=== PATIENT | male | born 1935 | race Caucasian/White ===

== ENCOUNTER 2016-08-25 05:43 | Emergency (ER) | payer OTHER ==
[~2016-08-25] VITALS: Ht 182.9 cm; Wt 106.6 kg
[~2016-08-25 05:43] MED LIST: AMLODIPINE BESYL5 M1 PO; ASPIRIN81 M4 PO; BACTRIM DS TAB1 EACH PO; CALCIUM 500 +1 EAC5 PO; CEPHALEXIN250 M2 PO; FLOMAX0.4 M1 PO; GLUCOSAMINE HC500 MG PO; HYDRALAZINE HCL50 M1 PO; JANUVIA50 M1 PO; PERCOCET 5-3251 EACH PO; TRAMADOL HCL50 M1 PO; ULTRAM50 M1 PO; VITAMIN B-121000 MC3 PO; VITAMIN C500 M6 PO
--- NOTE | 2016-08-25 05:52 | ED GI/GU/ABDOMINAL COMPLAINT ---
See Addendum History of Present Illness General Chief Complaint: Abdominal Pain/Flank Pain Stated Complaint: LT SIDE FLANK PAIN SINCE YEST Source: patient, family, old records Exam Limitations: no limitations Vital Signs & Intake/Output Vital Signs & Intake/Output Vital Signs Date Time Temp Pulse Resp B/P Pulse O2 O2 Flow FiO2 Ox Delivery Rate 08/25 0953 97.5 66 20 144/80 96 Room Air 08/25 0756 97.1 61 20 186/84 95 Room Air 08/25 0604 96.1 73 18 162/84 98 Room Air 08/25 0602 98 Room Air Allergies Coded Allergies: Sulfa (Sulfonamide Antibiotics) (ITCHING 08/25/16) Triage Nurses Notes Reviewed? yes HPI: Patient presents with left flank crampy pain that started yesterday. The pain is been constant. There are no aggravating or mitigating factors. There is no radiation. The pain is 8 out of 10. There is no nausea or vomiting. Yesterday he had 2 episodes of dysuria but none today. Patient has not noticed any hematuria. (ALISON HAHN,JIAN Clemons) Reconcile Medications Amlodipine Besylate 5 MG TABLET 1 TAB PO DAILY HTN (Reported) Ascorbate Calcium (Vitamin C) (Unknown Strength) TABLET (Unknown Dose) PO DAILY SUPPLEMENT (Reported) Aspirin (Aspirin*) 81 MG TAB.CHEW 1 TAB PO DAILY HEART HEALTH (Reported) Calcium Carbonate/Vitamin D3 (Calcium 500 + D Tablet) 500 MG-400 TABLET 2 TAB PO DAILY SUPPLEMENT (Reported) Cephalexin (Keflex) 500 MG CAPSULE 1 CAP PO BID UTI Cyanocobalamin (Vitamin B-12) (Unknown Strength) TABLET (Unknown Dose) PO DAILY SUPPLEMENT (Reported) Glucosamine HCl 500 MG TABLET 2 TAB PO DAILY SUPPLEMENT (Reported) Hydralazine HCl 50 MG TABLET 1 TAB PO DAILY HTN (Reported) Oxycodone HCl/Acetaminophen (Percocet 5-325 MG Tablet) 5 MG-325 MG TABLET 1 TAB PO Q12 PRN PAIN Sitagliptin Phosphate (Januvia) 50 MG TABLET 1 TAB PO DAILY DM (Reported) (LAZARUS RUCKER DO) Past History Medical History Any Pertinent Medical History? see below for history Neurological: NONE EENT: NONE Cardiovascular: hypertension Respiratory: NONE Gastrointestinal: NONE Hepatic: NONE Renal: BENIGN GROWTHS ON BOTH KI Musculoskeletal: NONE Psychiatric: NONE Endocrine: diabetes Blood Disorders: NONE 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, PROSTRATE AT RISK PARAPROFESSIONAL/Reproductive: NONE Surgical History Surgical History: non-contributory Psychosocial History Who do you live with Spouse What is your primary language German Tobacco Use: Current Daily Use Daily Tobacco Use Amount/Type: => 5 Cigarettes daily ETOH Use: occasional use Illicit Drug Use: denies illicit drug use Family History Hx Contributory? No (ALISON HAHN,JIAN Clemons) Review of Systems Review of Systems Constitutional: Reports: no symptoms. EENTM: Reports: no symptoms. Respiratory: Reports: no symptoms. Cardiovascular: Reports: no symptoms. GI: Reports: see HPI, abdominal pain. Genitourinary: Reports: see HPI, dysuria. Musculoskeletal: Reports: no symptoms. Skin: Reports: no symptoms. Neurological/Psychological: Reports: no symptoms. Hematologic/Endocrine: Reports: no symptoms. Immunologic/Allergic: Reports: no symptoms. All Other Systems: Reviewed and Negative (ALISON HAHN,JIAN Clemons) Physical Exam Physical Exam General Appearance: well developed/nourished, alert, awake, mild distress Head: atraumatic, normal appearance Eyes: Bilateral: PERRL, EOMI. Ears, Nose, Throat, Mouth: hearing grossly normal, moist mucous membrane Neck: normal inspection, supple, full range of motion, normal alignment Respiratory: normal breath sounds, chest non-tender, no respiratory distress, lungs clear Cardiovascular: regular rate/rhythm, normal peripheral pulses Gastrointestinal: normal bowel sounds, soft, non-tender, no organomegaly Back: normal inspection, normal range of motion, NO CVA TENDERNESS Extremities: normal range of motion Neurologic/Psych: no motor/sensory deficits, awake, alert, oriented x 3, normal gait, normal mood/affect Skin: intact, normal color, warm/dry Core Measures ACS in differential dx? No Severe Sepsis Present: No Septic Shock Present: No (ALISON HAHN,JIAN Clemons) Progress Differential Diagnosis: AMI, diverticulitis, ischemic bowel, inflamm bowel dis, pancreatitis, SBO, ureterolithiasis, urinary retention, UTI/pyelo Plan of Care: Orders Procedure Date/time Status TROPONIN LEVEL 08/25 06 Complete LIPASE 08/25 0618 Complete COMPREHENSIVE METABOLIC PANEL 08/25 617 Complete CBC WITHOUT DIFFERENTIAL 08/25 617 Complete AMYLASE 08/25 0618 Complete EKG 08/25 617 Active URINALYSIS 08/25 0550 Complete Laboratory Tests 08/25/16 0953: Urinalysis LIGHT H, Urine Color YEL, Urine Clarity CLEAR, Urine pH 6.0, Ur Specific Oxly 1.025, Urine Protein 100 H, Urine Ketones NEG, Urine Nitrite NEG, Urine Bilirubin NEG, Urine Urobilinogen 0.2, Ur Leukocyte Esterase NEG, Ur Microscopic SEDIMENT EXAMINED, Urine RBC 3-5, Urine WBC 1-3 H, Urine Bacteria MOD H, Urine Hemoglobin SMALL H, Urine Glucose NEG 08/25/16 0640: Anion Gap 12, Estimated GFR 39 L, BUN/Creatinine Ratio 17.6, Glucose 203 H, Calcium 9.9, Total Bilirubin 0.7, AST 23, ALT 40, Alkaline Phosphatase 58, Troponin I 0.05, Total Protein 6.8, Albumin 4.3, Globulin 2.5, Albumin/Globulin Ratio 1.7, Amylase 46, Lipase 182, CBC w Diff MAN DIFF ORDERED, RBC 4.35 L, MCV 87.6, MCH 28.6, RDW 13.8, MPV 9.7, Gran % 65.4, Lymphocytes % 27.9, Monocytes % 5.5, Eosinophils % 0.8, Basophils % 0.4, Absolute Granulocytes 11.2 H, Segmented Neutrophils 62, Absolute Lymphocytes 4.8 H, Lymphocytes 32, Monocytes 5, Absolute Monocytes 0.9 H, Eosinophils 1, Absolute Eosinophils 0.1, Absolute Basophils 0.1, Platelet Estimate ADEQUATE, Polychromasia 1+, Ovalocytes FEW, PUBS MCHC 32.7 L, Fld Total RBCs Counted 100 Diagnostic Imaging: Viewed by Me: CT Scan. Discussed w/RAD: CT Scan. Initial ED EKG: SR WITH BIFASICULAR BLOCK, NEW SINCE 2009 Prior EKG: changed Hand-Off Endorsed To: LAZARUS HENRIQUEZ MD Endorsed Time: 0700 Pending: CT, labs (ALISON HAHN,JIAN Clemons) Departure Departure Disposition: STILL A PATIENT Condition: Stable Clinical Impression Primary Impression: Upper abdominal pain, unspecified Referrals: SONIA BAEZ MD (PCP/Family) Departure Forms: Customer Survey General Discharge Information (ALISON HAHN,JIAN Clemons) Departure Prescriptions: Current Visit Scripts Cephalexin (Keflex) 1 CAP PO BID #14 CAP Oxycodone HCl/Acetaminophen (Percocet 5-325 MG Tablet) 1 TAB PO Q12 PRN PAIN #[address] scan results below IMPRESSION: No change in punctate calculus left ureterovesicular junction with mild hydronephrosis. Unchanged 3 mm nonobstructing calculus lower pole left kidney. Slight enlargement of bilateral solid renal masses. DICTATED BY: ANGELA CARVALHO MD DATE/TIME DICTATED:08/25/16727 UTILIZATION SPECIALIST:AJ DATE/TIME TRANSCRIBED:08/25/16727 CONFIDENTIAL, DO NOT COPY WITHOUT APPROPRIATE AUTHORIZATION. <Electronically signed in Other Vendor System> SIGNED BY: ANGELA CARVALHO MD 08/25/16 0742 08/25/16 9:11 am Patient was signed out to me by Dr. Santiago. He is an 81-year-old male with a history of bilateral renal masses; presented with left-sided flank pain. His CT scan of the abdomen and pelvis is unchanged. He has a 3 mm left renal stone. No evidence of hydronephrosis or ureterolithiasis. 08/25/16 10:26 AM Labs are unchanged. No hematuria. Urine culture was sent. I will treat the patient empirically with antibiotics and have him follow-up with urologist this week. He has a known history of bilateral renal masses. He was instructed to follow- up with urologist this week. Percocet was also given for pain. (LAZARUS RUCKER DO)
[2016-08-25 06:49] LABS: EOSINOPHIL % 0.8 % (0-5); HEMATOCRIT 38.1 % (42-52); MEAN CORPUSCULAR HGB 28.6 PG (27.0-31.0); MEAN CORPUSCULAR HGB CONC 32.7 G/DL (33.0-37.0); MEAN CORPUSCULAR VOLUME 87.6 FL (80.0-94.0); MEAN PLATELET VOLUME 9.7 FL (7.4-10.4); PLATELET COUNT 167 /CUMM (130-400); RBC DISTRIBUTION WIDTH 13.8 % (11.5-14.5); RED BLOOD CELL CT 4.35 /CUMM (4.70-6.10); WHITE BLOOD CELL COUNT 17.1 /CUMM (4.8-10.8)
[2016-08-25 06:57] LABS: BASOPHIL % 0.4 % (0.0-2.0)
[2016-08-25 06:58] LABS: ABSOLUTE BASOPHIL COUNT 0.1 /CUMM (0.0-0.2); ABSOLUTE EOSINOPHIL COUNT 0.1 /CUMM (0.0-0.7); ABSOLUTE GRANULOCYTE CT 11.2 /CUMM (1.4-6.5); ABSOLUTE LYMPH COUNT 4.8 /CUMM (1.2-3.4); ABSOLUTE MONOCYTE COUNT 0.9 /CUMM (0.10-0.60); GRANULOCYTE % 65.4 % (42.2-75.2)
--- NOTE | 2016-08-25 07:42 | CT SCAN REPORT ---
EXAMINATION: CT ABDOMEN AND PELVIS WITHOUT CONTRAST CLINICAL INFORMATION: Left flank pain. COMPARISON: 04/22/2016 TECHNIQUE: Multidetector volumetric imaging was performed from the superior aspect of the liver through the pubic symphysis. Sagittal and coronal reformatted images were obtained on the technologist's workstation. DLP: 846 mGy-cm FINDINGS: LUNG BASES: The lung bases are clear. Heavy three-vessel coronary calcium. LIVER, GALLBLADDER, AND BILIARY TREE: The liver is normal in size, shape, and attenuation. No focal hepatic lesion or biliary ductal dilatation is present. Multiple large faceted gallstones. No evidence of cholecystitis. PANCREAS: Unremarkable. SPLEEN: Unremarkable. ADRENAL GLANDS: Unremarkable. KIDNEYS AND URETERS: Unchanged punctate left UVJ calculus with mild upstream hydronephrosis. 3 mm nonobstructing calculus in the lower pole left kidney. No calculi on the right. There are multiple cysts. Additionally, there are solid masses in the lower pole of the right kidney measuring 6.6 x 5.3 cm and mid pole of the left kidney measuring 5.1 x 4.9 cm that have been previously shown to be solid and enhancing on MRI consistent with renal cell carcinoma. These slightly enlarged in size compared to 04/22/2016 when the right mass measured 6.4 cm in the left mass measured 4.7 cm in maximum dimension.. BLADDER: Unchanged left UVJ calculus. GASTROINTESTINAL TRACT: The small and large bowel are unremarkable. ABDOMINAL WALL: No significant hernia is appreciated. LYMPH NODES: Normal. VASCULAR: Negative for aneurysm. PELVIC VISCERA: Prostate normal size. OSSEOUS STRUCTURES: No evidence of metastatic disease. Posterior decompression at L3-L4. IMPRESSION: No change in punctate calculus left ureterovesicular junction with mild hydronephrosis. Unchanged 3 mm nonobstructing calculus lower pole left kidney. Slight enlargement of bilateral solid renal masses.
[2016-08-25 09:53] VITALS: BP 144/80
[2016-08-25] MEDS ORDERED: KEFLEX500 M1 PO (10:30)
[2016-08-25] MEDS ORDERED: PERCOCET 5-3251 EACH PO (10:39)
== END 2016-08-25 10:41 ==
LOC: ERH 05:43
PROVIDERS: Emergency Medicine
DX: R10.32 Left lower quadrant pain (principal)
CPT/HCPCS: 74176; 81001; 93005; 93010; 96374; J1885

== ENCOUNTER 2017-10-04 13:43 | Emergency (ER) | payer OTHER ==
[~2017-10-04] VITALS: Ht 182.9 cm; Wt 102.1 kg
[~2017-10-04 13:43] MED LIST changes: +KEFLEX500 M1 PO
[2017-10-04 13:51] VITALS: BP 157/72
--- NOTE | 2017-10-04 14:16 | ED MVC/FALL/TRAUMA COMPLAINT ---
History of Present Illness General Chief Complaint: Fall Stated Complaint: MECHANICAL FALL BUMP OVER RIGHT EYE NO LOC Source: patient, family, old records Exam Limitations: no limitations Vital Signs & Intake/Output Vital Signs & Intake/Output Vital Signs Date Time Temp Pulse Resp B/P B/P Pulse O2 O2 Flow FiO2 Mean Ox Delivery Rate 10/04 1351 98.6 76 18 157/72 97 Room Air Allergies Coded Allergies: Sulfa (Sulfonamide Antibiotics) (ITCHING 08/25/16) Reconcile Medications Amlodipine Besylate 5 MG TABLET 1 TAB PO DAILY HTN (Reported) Ascorbate Calcium (Vitamin C) (Unknown Strength) TABLET (Unknown Dose) PO DAILY SUPPLEMENT (Reported) Aspirin (Aspirin*) 81 MG TAB.CHEW 1 TAB PO DAILY HEART HEALTH (Reported) Calcium Carbonate/Vitamin D3 (Calcium 500 + D Tablet) 500 MG-400 TABLET 2 TAB PO DAILY SUPPLEMENT (Reported) Cephalexin (Keflex) 500 MG CAPSULE 1 CAP PO BID UTI Cyanocobalamin (Vitamin B-12) (Unknown Strength) TABLET (Unknown Dose) PO DAILY SUPPLEMENT (Reported) Glucosamine HCl 500 MG TABLET 2 TAB PO DAILY SUPPLEMENT (Reported) Hydralazine HCl 50 MG TABLET 1 TAB PO DAILY HTN (Reported) Oxycodone HCl/Acetaminophen (Percocet 5-325 MG Tablet) 5 MG-325 MG TABLET 1 TAB PO Q12 PRN PAIN Sitagliptin Phosphate (Januvia) 50 MG TABLET 1 TAB PO DAILY DM (Reported) Triage Note: PT TO ER C/C MECHANICAL FALL AT [facility] [employer]NA[employer]. EMS PRESENTED TO SCENE, PT REFUSED TRANSIT TO ER BY EMS. PT NOTED TO HAVE HEMATOMA TO RIGHT FOREHEAD WITH SMALL ABRASION. DENIES LOC. STATES TAKES 81 MG ASA DAILY. DENIES HEAD, NECK OR BACK PAIN Triage Nurses Notes Reviewed? yes Onset: Abrupt Duration: hour(s): (1), constant Timing: recent history Severity: mild Severity Numbers: 1 Injuries/Fall Location: head, upper extremity Method of Injury: fall Loss of Consciousness: no loss of consciousness No Modifying Factors: none Associated Symptoms: denies HPI: 82-year-old male with history of hypertension diabetes on aspirin presents s/p mechanical fall when he tripped and fell at [facility] prior to arrival striking his right upper arm and right side of his face. He states he did not lose consciousness. He denies nausea vomiting vision changes tinnitus. There is no prodromal dizziness light has prior to the fall. He's also complaining of right upper arm pain. He denies any pain with movement of the shoulder elbow wrist or hand numbness or tingling. He is not taken anything for pain as declining anything and offered no pain with inspiration no neck or back pain (Sidney Alvarez) Past History Travel History Traveled to [place] past 21 day No Medical History Any Pertinent Medical History? 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 No (Sidney Alvarez) Review of Systems Review of Systems Constitutional: Reports: see HPI. Comments Review of systems: See HPI, All other systems negative. Constitutional, no chills no fever, HEENT: no sore throat no congestion Cardiovascular: No chest pain , no palpitation Skin: no rashes, no change in skin Respiratory: No dyspnea no cough no sputum GI: No nausea no vomiting, no diarrhea, Muscle skeletal:no back pain, no neck pain, Neurologic: no headache Heme/endocrine: No bruising (Sidney Alvarez) Physical Exam Physical Exam General Appearance: well developed/nourished, alert, awake Comments: Well-developed well-nourished patient in no apparent distress. Head/Face: Small hematoma noted over the right eyebrow, no abrasions lacerations noted, the rest of the scalp is atraumatic Eyes: PERRL, EOMI, no conjunctival injection Ear:External auditory canal and Tympanic membranes clear, no erythema, no hemotympanum Nose: atraumatic.Normal inspection: No bleeding, no septal hematoma Throat: Moist mucous membranes.Pharynx normal. No pharyngeal erythema/exudate seen. No stridor/drooling or assymetry. No swelling or edema. Neck: Supple, no lymphadenopathy, FROM Back: FROM Cardiovascular: Regular rate and rhythms no murmurs rubs or gallops, Respiratory: Chest nontender.no clavicular tenderness There were no bony deformities, no asymmetry. No respiratory distress. Patient speaking in full complete sentences. Breath sounds clear to auscultation bilaterally: NO W/R/R Shoulder: Atraumatic/Stable. FROM . Elbow: Atraumatic/stable. FROM. No laxity Upper arm/Forearm: Atraumatic. Tender to palpation over the right lateral humerus no deformity. No edema, 5 out of 5 merchandise manager strength noted to bilateral upper extremities Hand/Wrist: Atraumatic/stable. Skin intact. FROM Pulses: Normal/equal radial pulses bilaterally. Brisk cap refill Lower Extremities: full range of motion Neuro: awake, alert, and oriented to person, place and time. There were no obvious focal neurologic abnormalities. Skin: Warm & dry;No appreciable rash on exposed skin Psych: Mood affect normal, normal memory normal judgment. Core Measures ACS in differential dx? No CVA/TIA Diagnosis No Sepsis Present: No Sepsis Focused Exam Completed? No (Jazmin ANGEL,Sidney) Progress Differential Diagnosis: C/T/L spine injury, ext injury, ICH, pelvis injury, spinal cord injury Plan of Care: Current Medications Sig/Mario Alberto Start time Last Medication Dose Stop Time Status Admin Acetaminophen 975 MG ONCE ONE 10/04 1515 UNVr 10/04 (Tylenol) 10/04 1516 1505 pt ambulatory to stretcher in nad. Patient is declining anything for pain when offered x-ray CAT scan ordered case d/w dr byrne. I discussed with the patient at length all of their results and incidental findings. PT AMB with steady gait in er. I had an extensive conversation regarding need for close follow up with their primary care physician this week as well as return precautions. I answered all of their questions, they feel comfortable with the plan and follow-up care. Diagnostic Imaging: Viewed by Me: Radiology Read, CT Scan. Discussed w/RAD: Radiology Read, CT Scan. Radiology Impression: PATIENT: INDIA REESE PRESENT AGE: 82 PATIENT ACCOUNT NO: [id number] : 35 LOCATION: [facility] ORDERING PHYSICIAN: Sidney ANGEL SERVICE DATE: 10/04/17 EXAM TYPE: CAT - CT HEAD WO IV CONTRAST EXAMINATION: CT HEAD WITHOUT CONTRAST CLINICAL INFORMATION: Fall and hit head. COMPARISON: None. TECHNIQUE: Contiguous axial imaging was performed from the skull base to vertex without intravenous administration of contrast. DLP: 696 mGy-cm. FINDINGS: There is right frontal scalp contusion and subgaleal hematoma but no calvarial fracture. There is no intracranial hemorrhage or extra-axial collection. There is a partially calcified 1.2 cm extra-axial lesion along the right prepontine cistern which could represent a meningioma. The lesion appears to extend into the posterior aspect of the cavernous sinus and Meckel's cave. The lesion abuts the wander but does not cause significant mass effect or vasogenic edema. No parenchymal mass or acute infarct is identified. The ventricles are normal in size without evidence of hydrocephalus. There is mild diffuse brain parenchymal volume loss. There is mild scattered hypoattenuation in the bilateral cerebral white matter, which is nonspecific but likely reflects small vessel disease. There is moderate polypoid paranasal sinus mucosal thickening and background changes of prior functional endoscopic sinus surgery. There are atherosclerotic calcification of the carotid siphons and vertebral arteries. IMPRESSION: - Right frontal scalp contusion and subgaleal hematoma but no calvarial fracture or intracranial hemorrhage. - Incidentally noted 1.2 cm partly calcified extra-axial lesion in the right prepontine cistern extending into the posterior aspect of the cavernous sinus and Meckel's cave. This finding could represent a meningioma but is now fully characterize. Consider nonemergent brain MRI with contrast for dedicated evaluation if this has not already been performed. - Moderate sinonasal polyposis. DICTATED BY: Nani Chen MD DATE/TIME DICTATED:10/04/171458 CAD MANAGER:AJ DATE/TIME TRANSCRIBED:10/04/171458 CONFIDENTIAL, DO NOT COPY WITHOUT APPROPRIATE AUTHORIZATION. <Electronically signed in Other Vendor System> SIGNED BY: Nani Chen MD 10/04/17 1514, PATIENT: INDIA REESE PRESENT AGE: 82 PATIENT ACCOUNT NO: [id number] : 35 LOCATION: [facility] ORDERING PHYSICIAN: Sidney ANGEL SERVICE DATE : 10/04/17 EXAM TYPE: RAD - XRY-HUMERUS, RIGHT EXAMINATION: XR HUMERUS, RIGHT CLINICAL INFORMATION: Rule out fracture. Fall and pain. COMPARISON: None TECHNIQUE: AP and lateral views of the right humerus. FINDINGS: The humerus is intact without fracture. The glenohumeral alignment is maintained. There are advanced degenerative changes at the acromioclavicular joint and milder changes at the glenohumeral joint. The soft tissues are within normal limits. IMPRESSION : No right humeral fracture. DICTATED BY: Nani Chen MD DATE/TIME DICTATED: 10/04/171510 CAD MANAGER:AJ DATE/TIME TRANSCRIBED:10/04/171510 CONFIDENTIAL, DO NOT COPY WITHOUT APPROPRIATE AUTHORIZATION. <Electronically signed in Other Vendor System> SIGNED BY: Nani Chen MD 10/04/17 1516 (Sidney Alvarez) Departure Departure Time of Disposition: 1519 Disposition: HOME OR SELF CARE Condition: Stable Clinical Impression Primary Impression: Minor head injury without loss of consciousness Secondary Impressions: Fall, Scalp hematoma Referrals: Arslan Guzmán MD (PCP/Family) Additional Instructions: Rest ice and Tylenol Motrin for pain. Follow-up with your primary care physician. Return to emergency room at anytime sooner with any concerns. Departure Forms: Customer Survey General Discharge Information (Sidney Alvarez) PA/INFORMATION CLERK CASHIER Co-Sign Statement Statement: ED Attending supervision documentation- [X] I saw and evaluated the patient. I have also reviewed all the pertinent lab results and diagnostic results. I agree with the findings and the plan of care as documented in the PA's/INFORMATION CLERK CASHIER's documentation. Patient presents for evaluation of injury sustained status post fall. Physical examination reveals a small area of soft tissue swelling and ecchymoses of the right brow. [] I have reviewed the ED Record and agree with the PA's/INFORMATION CLERK CASHIER's documentation. [] Additions or exceptions (if any) to the PAs/INFORMATION CLERK CASHIER's note and plan are summarized below: [] (Lamar HAHN,Jeremy Gibbs)
--- NOTE | 2017-10-04 15:14 | CT SCAN REPORT ---
EXAMINATION: CT HEAD WITHOUT CONTRAST CLINICAL INFORMATION: Fall and hit head. COMPARISON: None. TECHNIQUE: Contiguous axial imaging was performed from the skull base to vertex without intravenous administration of contrast. DLP: 696 mGy-cm. FINDINGS: There is right frontal scalp contusion and subgaleal hematoma but no calvarial fracture. There is no intracranial hemorrhage or extra-axial collection. There is a partially calcified 1.2 cm extra-axial lesion along the right prepontine cistern which could represent a meningioma. The lesion appears to extend into the posterior aspect of the cavernous sinus and Meckel's cave. The lesion abuts the wander but does not cause significant mass effect or vasogenic edema. No parenchymal mass or acute infarct is identified. The ventricles are normal in size without evidence of hydrocephalus. There is mild diffuse brain parenchymal volume loss. There is mild scattered hypoattenuation in the bilateral cerebral white matter, which is nonspecific but likely reflects small vessel disease. There is moderate polypoid paranasal sinus mucosal thickening and background changes of prior functional endoscopic sinus surgery. There are atherosclerotic calcification of the carotid siphons and vertebral arteries. IMPRESSION: - Right frontal scalp contusion and subgaleal hematoma but no calvarial fracture or intracranial hemorrhage. - Incidentally noted 1.2 cm partly calcified extra-axial lesion in the right prepontine cistern extending into the posterior aspect of the cavernous sinus and Meckel's cave. This finding could represent a meningioma but is now fully characterize. Consider nonemergent brain MRI with contrast for dedicated evaluation if this has not already been performed. - Moderate sinonasal polyposis.
--- NOTE | 2017-10-04 15:16 | RADIOLOGY REPORT ---
EXAMINATION: XR HUMERUS, RIGHT CLINICAL INFORMATION: Rule out fracture. Fall and pain. COMPARISON: None TECHNIQUE: AP and lateral views of the right humerus. FINDINGS: The humerus is intact without fracture. The glenohumeral alignment is maintained. There are advanced degenerative changes at the acromioclavicular joint and milder changes at the glenohumeral joint. The soft tissues are within normal limits. IMPRESSION: No right humeral fracture.
== END 2017-10-04 15:33 ==
LOC: ERH 13:43
DX: S09.90XA Unspecified injury of head, initial encounter (principal); S00.03XA Contusion of scalp, initial encounter; W18.09XA Striking against other object with subsequent fall, initial encounter; Y92.511 Restaurant or cafe as the place of occurrence of the external cause; Y93.9 Activity, unspecified
CPT/HCPCS: 73060-RT

== ENCOUNTER 2017-11-30 11:49 | Inpatient (IN) | payer OTHER ==
[~2017-11-30] VITALS: Ht 182.9 cm; Wt 100.5 kg
[~2017-11-30 11:49] MED LIST changes: +AMLODIPINE BESY10 M1 PO; -AMLODIPINE BESYL5 M1 PO
--- NOTE | 2017-11-30 12:15 | ED GENERAL ADULT ---
See Addendum History of Present Illness General Chief Complaint: General Adult Stated Complaint: SIB FOR RAPID HEART ,BEATAND PNC Source: patient Exam Limitations: no limitations Vital Signs & Intake/Output Vital Signs & Intake/Output Vital Signs Date Time Temp Pulse Resp B/P B/P Pulse O2 O2 Flow FiO2 Mean Ox Delivery Rate 11/30 1415 103 18 95 Room Air 11/30 1328 98.0 94 16 132/81 94 Room Air 11/30 1255 97.0 124 18 163/84 11/30 1242 97.0 124 163/84 11/30 1155 98.1 122 18 149/86 99 Room Air Allergies Coded Allergies: Sulfa (Sulfonamide Antibiotics) (ITCHING 08/25/16) metformin (DIARRHEA 11/30/17) Reconcile Medications Amlodipine Besylate 10 MG TABLET 1 TAB PO DAILY HEART (Reported) Aspirin (Aspirin*) 81 MG TAB.CHEW 1 TAB PO DAILY HEART HEALTH (Reported) Atorvastatin Calcium 10 MG TABLET 1 TAB PO QPM CHOLESTEROL (Reported) Cyanocobalamin (Vitamin B-12) 1,000 MCG TABLET SUPPLEMENT (Reported) Glucosamine HCl 500 MG TABLET 2 TAB PO DAILY SUPPLEMENT (Reported) Hydralazine HCl 50 MG TABLET 1 TAB PO BID HTN (Reported) Sitagliptin Phosphate (Januvia) 50 MG TABLET 1 TAB PO DAILY DM (Reported) Triage Note: 82 Y/O MALE SENT BY DR GUZMÁN FOR EVAL OF ? NEW ONSET AFIB. PT STATES HE WAS IN MD OFFICE FOR EVAL OF COUGH. STATES HE HAD EKG DONE AND WAS SENT TO ED FOR FURTHER EVAL. PER PHONE CALL FROM DR GUZMÁN, PT HEART RATE RANGED FROM 120'S-150'S IN OFFICE. PT DENIES C/P. DENIES SOB. HEART RATE 117-122 IN TRIAGE. TAKEN TO ROOM 3 FOR EKG AND EVAL Triage Nurses Notes Reviewed? yes Onset: Abrupt Duration: unknown duration Timing: unknown HPI: 11/25/17 82-year-old male presents to the emergency department by his primary care physician for new onset A. fib. The patient states he is completely asymptomatic however he does admit to being winded at times. He denies any chest pain. His EKG shows rapid A. fib with an average ventricular rate of 122 with occasional PVCs. Past History Travel History Traveled to [place] past 21 day No Medical History Any Pertinent Medical History? 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 No Review of Systems Review of Systems Constitutional: Denies: fever. EENTM: Reports: no symptoms. Respiratory: Reports: no symptoms. Cardiovascular: Reports: see HPI. GI: Reports: no symptoms. Genitourinary: Reports: no symptoms. Musculoskeletal: Reports: no symptoms. Skin: Reports: no symptoms. Neurological/Psychological: Reports: no symptoms. Hematologic/Endocrine: Reports: no symptoms. Immunologic/Allergic: Reports: no symptoms. Physical Exam Physical Exam General Appearance: alert, awake, anxious, mild distress Head: atraumatic, normal appearance Eyes: Bilateral: normal appearance, PERRL, EOMI. Ears, Nose, Throat: normal pharynx, normal ENT inspection Neck: normal inspection, supple, full range of motion Respiratory: normal breath sounds, chest non-tender, no respiratory distress Cardiovascular: tachycardia Peripheral Pulses: 4+ radial (R), 4+ radial (L) Gastrointestinal: soft, non-tender Rectal: heme negative stool Back: normal range of motion Extremities: no edema Neurologic/Psych: no motor/sensory deficits, awake, alert, oriented x 3 Skin: intact, normal color, warm/dry Core Measures ACS in differential dx? No CVA/TIA Diagnosis: No Sepsis Present: No Sepsis Focused Exam Completed? No Progress Differential Diagnoses I considered the following diagnoses in my evaluation of the patient: [Holiday heart syndrome, valvular A. fib, pulmonary embolism] Plan of Care: Orders Procedure Date/time Status ECHOCARDIOGRAM 11/30 1417 Active URINALYSIS 11/30 1213 Complete Telemetry/Performance Improvement Coordinator 11/30 1157 Active TROPONIN LEVEL 11/30 1157 Complete PARTIAL THROMBOPLASTIN TIME 11/30 1157 Complete PROTHROMBIN TIME 11/30 1157 Complete COMPREHENSIVE METABOLIC PANEL 11/30 1157 Complete CBC WITHOUT DIFFERENTIAL 11/30 1157 Complete EKG 11/30 1151 Active Laboratory Tests 11/30/17 1215: Anion Gap 16, Estimated GFR 45 L, BUN/Creatinine Ratio 22.7, Glucose 202 H, Calcium 9.4, Total Bilirubin 0.3, AST 18, ALT 33, Alkaline Phosphatase 65, Troponin I 0.03, Total Protein 6.8, Albumin 4.3, Globulin 2.5, Albumin/Globulin Ratio 1.7, PT 11.8, INR 1.08, APTT 31, CBC w Diff MAN DIFF ORDERED, RBC 3.86 L, MCV 86.9, MCH 29.4, MCHC 33.8, RDW 13.8, MPV 10.8 H, Gran % 57.3, Lymphocytes % 32.5, Monocytes % 6.2, Eosinophils % 3.6, Basophils % 0.4, Absolute Granulocytes 11.6 H, Absolute Lymphocytes 6.6 H, Absolute Monocytes 1.3 H, Absolute Eosinophils 0.7, Absolute Basophils 0.1, Platelet Estimate ADEQUATE, Normocytic RBCs VERIFIED, Normochromic RBCs VERIFIED, Urine Color YEL, Urine Clarity CLEAR, Urine pH 6.0, Ur Specific [place] 1.025, Urine Protein 30 H, Urine Ketones NEG, Urine Nitrite NEG, Urine Bilirubin NEG, Urine Urobilinogen 0.2, Ur Leukocyte Esterase NEG, Ur Microscopic SEDIMENT EXAMINED, Urine RBC 1-3, Urine WBC 1-3 H, Urine Bacteria FEW H, Urine Hemoglobin NEG, Urine Glucose NEG Initial ED EKG: RAPID ATRIAL FIBRILLATION, RIGHT BUNDLE BRANCH BLOCK, PVC Departure Departure Disposition: STILL A PATIENT Condition: Stable Clinical Impression Primary Impression: Rapid atrial fibrillation Referrals: Arslan Guzmán MD (PCP/Family) Departure Forms: Customer Survey General Discharge Information Admission Note Spoke With: Reyna Dick MD Documentation of Exam: Documentation of any treatments & extenuating circumstances including Concerns Regarding Discharge (functional status, medication knowledge or non-compliance, living conditions, etc.) that warrant an admission rather than observation: [ Telemetry monitoring, serial troponins, cardiology consultation, echocardiogram] Critical Care Note Critical Care Note Critical Care Time: 30-74 min
[2017-11-30 12:20] LABS: ABSOLUTE BASOPHIL COUNT 0.1 /CUMM (0.0-0.2); ABSOLUTE EOSINOPHIL COUNT 0.7 /CUMM (0.0-0.7); ABSOLUTE GRANULOCYTE CT 11.6 /CUMM (1.4-6.5); ABSOLUTE LYMPH COUNT 6.6 /CUMM (1.2-3.4); ABSOLUTE MONOCYTE COUNT 1.3 /CUMM (0.10-0.60); BASOPHIL % 0.4 % (0.0-2.0); EOSINOPHIL % 3.6 % (0-5); GRANULOCYTE % 57.3 % (42.2-75.2); HEMATOCRIT 33.6 % (42-52); MEAN CORPUSCULAR HGB 29.4 PG (27.0-31.0); MEAN CORPUSCULAR HGB CONC 33.8 G/DL (33.0-37.0); MEAN CORPUSCULAR VOLUME 86.9 FL (80.0-94.0); MEAN PLATELET VOLUME 10.8 FL (7.4-10.4); PLATELET COUNT 284 /CUMM (130-400); RBC DISTRIBUTION WIDTH 13.8 % (11.5-14.5); RED BLOOD CELL CT 3.86 /CUMM (4.70-6.10); WHITE BLOOD CELL COUNT 20.2 /CUMM (4.8-10.8)
[2017-11-30 12:30] LABS: PT 11.8 SEC (9.4-12.5); PTT 31 SEC (25-37)
[2017-11-30] MEDS ORDERED: ATORVASTATIN CA10 M1 PO (12:35)
--- NOTE | 2017-11-30 13:05 | RADIOLOGY REPORT ---
EXAMINATION: XR PORTABLE CHEST CLINICAL INFORMATION: New onset atrial fibrillation COMPARISON: 03/29/2017 TECHNIQUE: Portable frontal view of the chest was obtained. FINDINGS: Cardiac leads overlie the chest. The lungs are well expanded. There is no focal consolidation, edema, or effusion. No pneumothorax. The cardiomediastinal silhouette is unchanged, at the upper limit of normal in size. No acute osseous abnormality. IMPRESSION: No acute pulmonary finding.
--- NOTE | 2017-11-30 13:25 | Cons- Cardiology ---
General Information and HPI Consulting Request Date of Consult: 11/30/17 Requested By: Dr Castaneda Reason for Consult: new onset Afib with rapid ventricular rate History of Present Illness: Patient presented to the ED following new diagnosis of rapid Afib at his PCP's office today, where an EKG was done due to patient complaining of recent onset fatigue. He denies chest pains, orthopnea, syncope, diaphoresis, dizziness, paroxysmal nocturnal dysnea, edema of the lower extremities. Has been treated for bacterial pharyngitis 1 week ago, and still has a dry cough which hurts his throat. Allergies/Medications Allergies: Coded Allergies: Sulfa (Sulfonamide Antibiotics) (ITCHING 08/25/16) metformin (DIARRHEA 11/30/17) Home Med List: Amlodipine Besylate 10 MG TABLET 1 TAB PO DAILY HEART (Reported) Aspirin (Aspirin*) 81 MG TAB.CHEW 1 TAB PO DAILY HEART HEALTH (Reported) Atorvastatin Calcium 10 MG TABLET 1 TAB PO QPM CHOLESTEROL (Reported) Cyanocobalamin (Vitamin B-12) 1,000 MCG TABLET SUPPLEMENT (Reported) Glucosamine HCl 500 MG TABLET 2 TAB PO DAILY SUPPLEMENT (Reported) Hydralazine HCl 50 MG TABLET 1 TAB PO BID HTN (Reported) Sitagliptin Phosphate (Januvia) 50 MG TABLET 1 TAB PO DAILY DM (Reported) Current Medications: Current Medications Sig/Mario Alberto Start time Last Medication Dose Route Stop Time Status Admin Metoprolol Tartrate 0 .STK-MED ONE 11/30 1250 DC IV Metoprolol Tartrate 5 MG ONCE ONE 11/30 1230 DC 11/30 IV 11/30 1231 1255 Past History Travel History Traveled to [place] past 21 day No Medical History Neurological: NONE EENT: NONE Cardiovascular: hypertension Respiratory: NONE Gastrointestinal: NONE Hepatic: NONE Renal: nephrolithiasis, BENIGN GROWTHS ON BOTH KI Musculoskeletal: NONE Psychiatric: NONE Endocrine: diabetes Blood Disorders: NONE 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, 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 Surgical History Surgical History: non-contributory Exam & Diagnostic Data Vital Signs and I&O Vital Signs Date Time Temp Pulse Resp B/P B/P Pulse O2 O2 Flow FiO2 Mean Ox Delivery Rate 11/30 1255 97.0 124 18 163/84 11/30 1242 97.0 124 163/84 11/30 1155 98.1 122 18 149/86 99 Room Air Intake & Output 06/11/30 0811/30 0000 11/29 0811/29 0000 Intake Total Output Total 150 Balance -150 Output, Urine 150 Patient 220 lb Weight Weight Reported by Patient Measurement Method Labs/Rigo Results: Laboratory Tests 11/30 1215 Chemistry Sodium (137 - 145 mmol/L) 142 Potassium (3.5 - 5.1 mmol/L) 4.4 Chloride (98 - 107 mmol/L) 109 H Carbon Dioxide (22 - 30 mmol/L) 17 L Anion Gap (5 - 16) 16 BUN (9 - 20 mg/dL) 34 H Creatinine (0.7 - 1.2 mg/dL) 1.5 H Estimated GFR (>60 ml/min) 45 L BUN/Creatinine Ratio (7 - 25 %) 22.7 Glucose (65 - 99 mg/dL) 202 H Calcium (8.4 - 10.2 mg/dL) 9.4 Total Bilirubin (0.2 - 1.3 mg/dL) 0.3 AST (17 - 59 U/L) 18 ALT (21 - 72 U/L) 33 Alkaline Phosphatase (< 127 U/L) 65 Troponin I (<0.11 ng/ml) 0.03 Total Protein (6.3 - 8.2 g/dL) 6.8 Albumin (3.5 - 5.0 g/dL) 4.3 Globulin (1.9 - 4.2 gm/dL) 2.5 Albumin/Globulin Ratio (1.1 - 2.2 %) 1.7 Coagulation PT (9.4 - 12.5 SEC) 11.8 INR (0.90 - 1.17) 1.08 APTT (25 - 37 SEC) 31 Hematology CBC w Diff MAN DIFF ORDERED WBC (4.8 - 10.8 /CUMM) 20.2 H RBC (4.70 - 6.10 /CUMM) 3.86 L Hgb (14.0 - 18.0 G/DL) 11.3 L Hct (42 - 52 %) 33.6 L MCV (80.0 - 94.0 FL) 86.9 MCH (27.0 - 31.0 PG) 29.4 MCHC (33.0 - 37.0 G/DL) 33.8 RDW (11.5 - 14.5 %) 13.8 Plt Count (130 - 400 /CUMM) 284 MPV (7.4 - 10.4 FL) 10.8 H Gran % (42.2 - 75.2 %) 57.3 Lymphocytes % (20.5 - 51.1 %) 32.5 Monocytes % (1.7 - 9.3 %) 6.2 Eosinophils % (0 - 5 %) 3.6 Basophils % (0.0 - 2.0 %) 0.4 Absolute Granulocytes (1.4 - 6.5 /CUMM) 11.6 H Absolute Lymphocytes (1.2 - 3.4 /CUMM) 6.6 H Absolute Monocytes (0.10 - 0.60 /CUMM) 1.3 H Absolute Eosinophils (0.0 - 0.7 /CUMM) 0.7 Absolute Basophils (0.0 - 0.2 /CUMM) 0.1 Platelet Estimate (ADEQUATE) ADEQUATE Normocytic RBCs VERIFIED Normochromic RBCs VERIFIED Urines Urine Color (YEL,AMB,STR) YEL Urine Clarity (CLEAR) CLEAR Urine pH (5.0 - 8.0) 6.0 Ur Specific [place] (1.001 - 1.035) 1.025 Urine Protein (NEG,<30 MG/DL) 30 H Urine Ketones (NEG) NEG Urine Nitrite (NEG) NEG Urine Bilirubin (NEG) NEG Urine Urobilinogen (0.1 - 1.0 EU/dl) 0.2 Ur Leukocyte Esterase (NEG) NEG Ur Microscopic SEDIMENT EXAMINED Urine RBC (0 - 5 /HPF) 1-3 Urine WBC (0 - 2 /HPF) 1-3 H Urine Bacteria (NEG/NONE) FEW H Urine Hemoglobin (NEG) NEG Urine Glucose (N MG/DL) NEG Assessment/Plan Assessment/Plan New onset Afib with rapid ventricular response in 82 year old patient with hypertension and diabetes mellitus. Exact onset is unclear, so i would avoid antiarrhythmic drugs unless he has a MAINE to rule out thrombus in the atrial appendage. May have been offset by recent pharyngitis. Since he is not symptomatic, i think a retirement rate controle strategy may be the way to go. Please order an echocardiogram to evaluate myocardial function, valvular morphology and atrial size. Keep on 1N, telemetry. CHADS2 SCORE is > 3, so he definitely is a canditate for anticoagulation. I would begin eliquis 5 mg PO bid, and discontinue ASA since there is no know CAD/vascular disease. I would begin metoprolol 50 mg PO bid, maintain amlodipine at same dose given high BP. TSH level. magnesium level. Nuclear stress test to rule out ischemic etiology of new AFib. urine culture (although UA is not suggestive of infection). Consult Acknowledgment - Thank you for your consult request.
--- NOTE | 2017-11-30 14:35 | History & Physical ---
[facility] 1435: General Information and HPI MD Statement: I have seen and personally examined INDIA REESE and documented this H&P. The patient is a 82 year old M who presented with a patient stated chief complaint of [cough and fatigue]. Source of Information: patient History of Present Illness: 82-year-old male with past medical history of hypertension, diabetes came to his PCP office today with cough and yellow sputum production for the past 10 days. Patient was in usual state of health until 10 days ago following which he had chronic cough with yellow sputum production. He saw his PCP,who started him on amoxicillin for 10 days. Patient cough did not improve much and hence he went to his PCP back today. Upon examination he found to have atrial fibrillation and stat EKG was taken which showed A. fib with RVR and hence was sent to [facility]. Patient denies chest pain, palpitation, orthopnea, dyspnea, paroxysmal nocturnal dyspnea, fever, chills, dizziness during the same time. Patient never had these kind of symptoms in the past. Patient actually drove from his primary care physician office to [facility] today. He denies any heart /renal disease. But patient had a stress test done [address] Lawrence which was negative. She also has high white blood count, seen by facing baster and had a negative investigation. Last admission at [facility] was in year 2009 for acute renal failure. 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 Allergies/Medications Allergies: Coded Allergies: Sulfa (Sulfonamide Antibiotics) (ITCHING 08/25/16) metformin (DIARRHEA 11/30/17) Home Med list Amlodipine Besylate 10 MG TABLET 1 TAB PO DAILY HEART (Reported) Aspirin (Aspirin*) 81 MG TAB.CHEW 1 TAB PO DAILY HEART HEALTH (Reported) Atorvastatin Calcium 10 MG TABLET 1 TAB PO QPM CHOLESTEROL (Reported) Cyanocobalamin (Vitamin B-12) 1,000 MCG TABLET SUPPLEMENT (Reported) Glucosamine HCl 500 MG TABLET 2 TAB PO DAILY SUPPLEMENT (Reported) Hydralazine HCl 50 MG TABLET 1 TAB PO BID HTN (Reported) Sitagliptin Phosphate (Januvia) 50 MG TABLET 1 TAB PO DAILY DM (Reported) Compliance With Home Meds: FAIR Past History Travel History Traveled to [place] past 21 day No Medical History Neurological: NONE EENT: NONE Cardiovascular: hypertension Respiratory: NONE Gastrointestinal: NONE Hepatic: NONE Renal: nephrolithiasis, BENIGN GROWTHS ON BOTH KI Musculoskeletal: NONE Psychiatric: NONE Endocrine: diabetes Blood Disorders: NONE 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 Psychosocial History Where do you live? Home Who Do You Live With? parent Services at Home: None Primary Language: Occitan Smoking Status: Never Smoked ETOH Use: denies use Illicit Drug Use: denies illicit drug use Functional Ability ADLs Independent: dressing, eating, toileting, bathing. Ambulation: independent IADLs Independent: shopping, housework, finances, food prep, telephone, transportation , medication admin. Review of Systems Review of Systems Constitutional: Reports: no symptoms. Cardiovascular: Reports: no symptoms. Respiratory: Reports: cough, sputum production. GI: Reports: no symptoms. Genitourinary: Reports: no symptoms. Musculoskeletal: Reports: no symptoms. Skin: Reports: no symptoms. Exam & Diagnostic Data Last 24 Hrs of Vital Signs/I&O Vital Signs Date Time Temp Pulse Resp B/P B/P Pulse O2 O2 Flow FiO2 Mean Ox Delivery Rate 11/30 1521 103 16 94 Room Air 11/30 1447 105 119/72 11/30 1415 103 18 95 Room Air 11/30 1328 98.0 94 16 132/81 94 Room Air 11/30 1255 97.0 124 18 163/84 11/30 1242 97.0 124 163/84 11/30 1155 98.1 122 18 149/86 99 Room Air Intake & Output 11/30 1600 11/30 0800 11/30 0000 Intake Total Output Total 150 Balance -150 Output, Urine 150 Patient 220 lb Weight Weight Reported by Patient Measurement Method Physical Exam General Appearance Alert, Oriented X3, Cooperative, No Acute Distress, Mild Distress Cardiovascular Normal S1, Normal S2, irregular Lungs Clear to Auscultation Abdomen Soft Neurological Normal Speech, Strength at 5/5 X4 Ext, Normal Tone, Sensation Intact Extremities No Edema Diagnostic Data EKG Results afin with HR at 120s with RBBB. Assessment/Plan Assessment: 82-year-old gentleman with past medical history of hypertension, diabetes came to [facility] with complaints of fatigue [at this PCP office] and found to have atrial fibrillation with rapid ventricular rate at his PCP office. Admission vitals Pulse rate 105, respiratory rate 18, blood pressure 119/72, saturating 94 at room air Admission labs WBC 20.2, hemoglobin 11.3, platelet count 282,17.1 in August 2016 oh sodium 142, potassium 4.4, carbon dioxide 17, ED treatment IV Lopressor 5 mg once. Assessment and plan 1. Atrial fibrillation with rapid ventricular rate -patient presented with rapid atrial fibrillation with rapid ventricular rate. Unsure if the bronchitis /systemic hypertension or patient having pericarditis secondary to strep throat triggering this atrial fibrillation. Patient's [id number] score is 4 requiring anticoagulation. We will start him on Eliquis 5 mg twice daily and hold his aspirin. Patient got 5 mg of metoprolol IV. We will start him on metoprolol 50 twice daily and continue amlodipine. Patient blood pressure is well controlled. For now we will hold hydralazine and resume upon discharge. His URI symptoms or patient has cough with yellow sputum production for the past 10 days. Patient was on amoxicillin long-standing systemic hypertension has triggered his A. fib. We will do T4 and TSH since hyper thyroidism can trigger atrial fibrillation and echocardiogram to rule out any valve abnormalities. Cardiology on board. 2.Chronic leukocytosis with no bands/cough with sputum production-patient previous WBC was 17 in August 2016. Patient was investigated in the past by facing baster and suggested no evidence of malignancy. For 10 days. According to the patient his cough and sputum production did improve. Initial portable chest x-ray negative. We will check a CT chest to rule out any acute pathology. We will send sputum culture. 3.Chronic kidney disease stage IIIb-his creatinine today is 1.7 with bun 34. We will follow BEP. His kidney disease could be the cause for his normal anion gap metabolic acidosis. 4. Rxdgocfe-Dsav-Qiyo NovoLog sliding scale insulin. Code-full code diet-heart healthy diet DVT prophylaxis-on Eliquis Continue amlodipine, atorvastatin Hold-hydralazine, aspirin,Sitagliptan As Ranked By This Provider Problem List: 1. Rapid atrial fibrillation Core Measures/Misc (02/19) Acute Coronary Syndrome ACS Diagnosis: No Congestive Heart Failure Congestive Heart Failure Diagnosis No Cerebrovascular Accident CVA/TIA Diagnosis: No VTE (View Protocol) VTE Risk Factors Age>40 No Mechanical VTE Prophylaxis d/t Other No VTE Pharm Prophylaxis d/t Other Sepsis (View protocol) Sepsis Present: No If YES complete Sepsis Event Note If YES complete Sepsis Event Note Fadi HAHN,Jose L 11/30/17 1438: Core Measures/Misc (02/19) Sepsis (View protocol) If YES complete Sepsis Event Note If YES complete Sepsis Event Note Resident Review Statement Resident Statement: discussed with internet project manager, agreed with internet project manager, amended to note Other Findings: 82-year-old lady with a past medical history significant for hypertension, diabetes sent in by her P for evaluation of new onset atrial fibrillation that was detected by EKG at PCP office. No report of chest pain, orthopnea, LE swelling, recent stress test was 3 months ago with benign findings. Impression * New onset atrial fibrillation with RVR and a chadvasc score of 3 warranting anticoagulation. * Leukocytosis. Recenet hx of possible URI treated with amoxicilin. * Acute on chronic CKD. 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 Appears chronic and is normocytic, possible anemia of chronic disease. * History of chronic diseases; hypertension, diabetes Plan Admit to telemetry for close cardiac monitoring Trend troponin EKG 2 Obtain TSH s/p IV metoprolol 5mg continue metoprolol 50 mg for rate control with a target of less than 110 Continue amlodipine 5 mg for BP, hold off Hydralazine Obtain echocardiogram to assess for any valvular pathology, atrial size, left ventricle Check Mg and Phos Continue to follow cardio reccs Will trend white count Carbohydrate diet Hold off oral hypoglycemic agents Accu-Chek 3 times a day and bedtime NovoLog sliding scale DVT PPX: Elliquis Code status: COLE Liang MD,Linh 11/30/17 1521: Core Measures/Misc (02/19) Sepsis (View protocol) If YES complete Sepsis Event Note If YES complete Sepsis Event Note Attending MD Review Statement Attending Statement Attending MD Statement: examined this patient, discuss w/resident/PA/CARTON STENCILER, agreed w/resident/PA/CARTON STENCILER, reviewed EMR data (avail) Attending Assessment/Plan: 82M PMH HTN, HLD, T2DM was at his PCP's office for a month of cough, found incidentalliy to be in new onset rapid atrial fibrillation with RVR with a rate of 140's, sent to ER by his PCP. His cough has been present for a month, now dry, finished a course of Penicillin V yestederday. Denies fever, chills, lightheadedness, chest pain, palpitations, SOB, abdominal pain, diarrhea, dysuria. Found to have WBC 20.2, creatinine 1.5 (baseline), CXR negative. Given Metoprolol IV 5mg in ER and rate improved, rate now 100-120 and in afib. 1. New onset rapid atrial fibrillation with RVR 2. Neutrophilia 3. Cough Plan - Admit to telemetry - Start Metoprolol 50mg PO BID - Start Eliquis 5mg BID - Sputum and urine cultures - CT chest, non-contrast - Hold antibiotics for now - Continue home medications, watch for hypotension - DVT PPx
--- NOTE | 2017-11-30 15:24 | Admission Certification ---
Admission Certification Certification Statement - As attending physician, I certify that at the time of - admission, based on clinical presentation, severity of - symptoms, need for further diagnostic testing and - therapeutic interventions, and risk of adverse outcomes - without in-hospital treatment, in my clinical assessment, - this patient requires an acute hospital stay for a minimum - of two nights or longer. I have also considered psychsocial - factors such as support system, advanced age, financial - issues, cognitive issues, and failed out-patient treatments, - past re-admission history, safety of patient, and lack of - compliance as applicable. Specific rationale supporting this admission is: New onset atrial fibrillation
[2017-11-30 18:26] VITALS: BP 134/76
--- NOTE | 2017-11-30 19:06 | CT SCAN REPORT ---
EXAMINATION: CT CHEST WITHOUT CONTRAST CLINICAL INFORMATION: Chronic cough. Sputum COMPARISON: Portions of a previous study 08/20/13 TECHNIQUE: Multidetector volumetric CT imaging of the chest was done. Axial MIP volume rendering provided. Sagittal and coronal reformatted images were obtained. DLP: 602 mGy-cm FINDINGS: JUNIOR FINANCIAL ANALYST: Slight ectasia of the aortic arch. Prominent cardiac silhouette. No dense pneumonia or large area of atelectasis. Cholelithiasis LUNGS: There is some dependent debris in the left mainstem bronchus. There may be a mild amount of debris in the distal trachea. There may be some slight lower airway thickening. There is no convincing bronchiectasis. No large area of consolidation. There is mild generalized thickening of the interlobular septa. These thickened interlobular septa appear relatively smooth. There is no alveolar edema. There are some scattered micronodules. These are nonspecific. Some customer assistance representative nodules as follows; Juxtapleural posteromedial aspect posterior segment right upper lobe 11/30/17, series 5, image 135- 0.6 cm 08/20/13-not present Amorphous curvilinear opacity in the central portion of the superior segment of the right lower lobe 11/30/17, series 5, image 196-mean diameter 0.5 cm 08/20/13-not present Juxtapleural opacity in the anterior segment left upper lobe abutting the mediastinum 11/30/17, series 5, image 131-0.4 cm 08/20/13-not present Small groundglass opacity in the periphery of the left upper lobe at the level of the AP window 11/30/17, series 5, image 152-0.9 cm 08/20/13-not present No cystic disease MEDIASTINUM: Unchanged heterogeneous low attenuating left thyroid nodule. There are no measurably enlarged mediastinal or hilar lymph nodes. No abnormality the esophagus. There is extensive calcification of the mitral annulus and within the coronary arteries. The main pulmonary artery is top normal. PLEURA: No significant pleural fluid. No pneumothorax AXILLA: No lymphadenopathy. UPPER ABDOMEN: Multiple large gallstones. Partially included exophytic renal masses. These appear to have been present in the visualized upper kidneys previously. The previous studies have demonstrated renal masses. These should be managed on the basis of previous imaging and clinical circumstances. OSSEOUS STRUCTURES: There are bridging osteophytes or syndesmophytes. Vacuum phenomena in one of the lower thoracic discs. There appears to be ankylosis of the interspinous ligament. Ankylosing spondylitis may be present. IMPRESSION: The patient is no definite solid renal masses. Thickening of the intralobular septa. This mild interstitial lung disease is nonspecific but appears new. There are scattered nonspecific small nodules. No acute pneumonia. There may be ankylosing spondylitis. Cholelithiasis. Depending upon the clinical circumstances a follow-up study to reassess the nodule should be considered in approximately 6 months
[2017-11-30 22:36] VITALS: BP 134/76
[2017-12-01 06:31] VITALS: BP 134/74
--- NOTE | 2017-12-01 07:00 | PN- Housestaff ---
Arabella Castillo MD 12/01/17 0700: Subjective Follow-up For: Atrial fibrillation with rapid ventricular rate Complaints: no complaints Tele-Events Since Last Visit: Atrial fibrillation with a heart rate of 80 Multiple PVC up to 5 Subjective: Patient seen and examined at bedside. No overnight events. Patient is eager to go home today. He denies chest pain, palpitation, nausea, vomiting. He is ablating well at baseline. Review of Systems Constitutional: Reports: no symptoms. Objective Last 24 Hrs of Vital Signs/I&O Vital Signs Date Time Temp Pulse Resp B/P B/P Pulse O2 O2 Flow FiO2 Mean Ox Delivery Rate 12/01 06 98.7 71 20 134/74 95 Room Air 11/30 2236 98.9 106 22 134/76 93 Room Air 11/30 1912 136 11/30 1826 98.3 97 16 134/76 94 11/30 1811 94 Room Air 11/30 1645 98.2 108 16 129/85 95 Room Air 11/30 1521 103 16 94 Room Air 11/30 1447 105 119/72 11/30 1415 103 18 95 Room Air 11/30 1328 98.0 94 16 132/81 94 Room Air 11/30 1255 97.0 124 18 163/84 11/30 1242 97.0 124 163/84 11/30 1155 98.1 122 18 149/86 99 Room Air Intake & Output 12/01 1600 12/01 0800 12/01 0000 Intake Total 480 480 Output Total 300 Balance 480 180 Intake, Oral 480 480 Number 0 Bowel Movements Output, Urine 300 Patient 222 lb Weight Weight Bed scale Measurement Method Physical Exam General Appearance: Alert, Oriented X3, Cooperative, No Acute Distress Cardiovascular: Normal S1, Normal S2, No Murmurs, IRREGULAR Lungs: Clear to Auscultation Abdomen: Soft, No Tenderness, No Hepatospenomegaly Neurological: Normal Speech, Strength at 5/5 X4 Ext, Normal Tone, Sensation Intact, Cranial Nerves 3-12 NL Current Medications: Current Medications Sig/Mario Alberto Start time Last Medication Dose Route Stop Time Status Admin Amlodipine Besylate 10 MG DAILY 12/01 0900 AC PO Apixaban 2.5 MG BID 11/30 2100 AC 11/30 PO 1912 Apixaban 5 MG BID 11/30 1438 DC PO Atorvastatin Calcium 10 MG QPM 11/30 2100 AC 11/30 PO 204 Benzonatate 100 MG TID 11/30 1530 AC 11/30 PO 2042 Guaifenesin 600 MG Q12 11/30 2100 AC 11/30 PO 2042 Guaifenesin 600 MG STAT STA 11/30 1432 DC 11/30 PO 11/30 1433 1645 Insulin Aspart 0 TIDAC 11/30 1700 AC SC Magnesium Oxide 400 MG ONCE ONE 11/30 1610 DC 11/30 PO 11/30 1611 1645 Metoprolol Tartrate 50 MG BID 11/30 2100 AC 11/30 PO 1912 Metoprolol Tartrate 0 .STK-MED ONE 11/30 1250 DC IV Metoprolol Tartrate 5 MG ONCE ONE 11/30 1230 DC 11/30 IV 11/30 1231 1255 Last 24 Hrs of Lab/Rigo Results Last 24 Hrs of Labs/Mics: Laboratory Tests 12/01/17626: Anion Gap 12, Estimated GFR 45 L, BUN/Creatinine Ratio 20.7, Magnesium 1.7, Triglycerides 153 H, Cholesterol 78, LDL Cholesterol, Calc 18 L, HDL Cholesterol 30 L, Cholesterol/HDL Ratio 3, CBC w Diff MAN DIFF ORDERED, RBC 3.44 L, MCV 88.0, MCH 29.2, MCHC 33.2, RDW 13.9, MPV 11.4 H, Gran % 48.5, Lymphocytes % 39.9, Monocytes % 7.5, Eosinophils % 3.6, Basophils % 0.5, Absolute Granulocytes 8.0 H, Segmented Neutrophils 41 L, Band Neutrophils 3, Absolute Lymphocytes 6.6 H, Lymphocytes 48, Monocytes 2, Absolute Monocytes 1.2 H, Eosinophils 1, Absolute Eosinophils 0.6, Basophils 1, Absolute Basophils 0.1 , Metamyelocytes 1, Myelocytes 3 H, Platelet Estimate ADEQUATE, Polychromasia 1 +, Schistocytes RARE 11/30/17 1835: Phosphorus 4.1, Troponin I 0.03, Thyroxine (T4) 7.3 11/30/17 1440: Free T4 Cancelled 11/30/17 1215: Anion Gap 16, Estimated GFR 45 L, BUN/Creatinine Ratio 22.7, Glucose 202 H, Hemoglobin A1c 7.3 H, Calcium 9.4, Magnesium 1.6, Total Bilirubin 0.3, AST 18, ALT 33, Alkaline Phosphatase 65, Troponin I 0.03, Total Protein 6.8, Albumin 4.3 , Globulin 2.5, Albumin/Globulin Ratio 1.7, TSH 0.217 L, PT 11.8, INR 1.08, APTT 31, CBC w Diff MAN DIFF ORDERED, RBC 3.86 L, MCV 86.9, MCH 29.4, MCHC 33.8 , RDW 13.8, MPV 10.8 H, Gran % 57.3, Lymphocytes % 32.5, Monocytes % 6.2, Eosinophils % 3.6, Basophils % 0.4, Absolute Granulocytes 11.6 H, Absolute Lymphocytes 6.6 H, Absolute Monocytes 1.3 H, Absolute Eosinophils 0.7, Absolute Basophils 0.1, Platelet Estimate ADEQUATE, Normocytic RBCs VERIFIED, Normochromic RBCs VERIFIED, Urine Color YEL, Urine Clarity CLEAR, Urine pH 6.0, Ur Specific [place] 1.025, Urine Protein 30 H, Urine Ketones NEG, Urine Nitrite NEG, Urine Bilirubin NEG, Urine Urobilinogen 0.2, Ur Leukocyte Esterase NEG, Ur Microscopic SEDIMENT EXAMINED, Urine RBC 1-3, Urine WBC 1-3 H, Urine Bacteria FEW H, Urine Hemoglobin NEG, Urine Glucose NEG Microbiology 11/30 1916 URINE ROUT: Urine Culture - RECD 11/30 1526 LOWER RESP: Respiratory Culture - COLB 11/30 1526 LOWER RESP: Gram Stain - COLB Assessment/Plan Assessment: 82-year-old gentleman with past medical history of hypertension, diabetes came to [facility] with complaints of fatigue [at this PCP office] and found to have atrial fibrillation with rapid ventricular rate at his PCP office. Assessment and plan 1. Atrial fibrillation with rapid ventricular rate -patient presented with rapid atrial fibrillation with rapid ventricular rate. Unsure if the bronchitis /systemic hypertension or patient having pericarditis secondary to strep throat triggering this atrial fibrillation. Patient's [id number] score is 4 requiring anticoagulation. Patient is on Eliquis, metoprolol 50 for the same. We did a CAT scan of the chest to rule out any pneumonia. It was negative. But patient has multiple pulmonary nodules and a left thyroid nodule which needs outpatient follow-up. Cardiology on board. Patient might need echocardiogram. Thyroid function study normal. 2.Chronic leukocytosis with no bands/cough with sputum production-patient previous WBC was 17 in August 2016. Patient was investigated in the past by pourer buggy ladle and suggested no evidence of malignancy. We will follow-up with sputum culture. 3.Chronic kidney disease stage IIIb-his creatinine IS 1.5with bun 31. We will follow BEP. 4. [id number] NovoLog sliding scale insulin. Code-full code diet-heart healthy diet DVT prophylaxis-on Eliquis Continue amlodipine, atorvastatin Hold-hydralazine, aspirin,Sitagliptan Problem List: 1. Rapid atrial fibrillation Pain Ratin Pain Location: NONE Pain Goal: Remain pain free Pain Plan: TYLENOL Tomorrow's Labs & Rationales: CBC,BEP Linh Liang MD 12/01/17 1049: Attending MD Review Statement Attending Statement Attending MD Statement: examined this patient, discuss w/resident/PA/COFFEE MAKER, agreed w/resident/PA/COFFEE MAKER, reviewed EMR data (avail) Attending Assessment/Plan: 82M PMH HTN, HLD, T2DM was at his PCP's office for a month of cough, found incidentalliy to be in new onset rapid atrial fibrillation with RVR with a rate of 140's, sent to ER by his PCP. His cough has been present for a month, now dry, finished a course of Penicillin V yestederday. Denies fever, chills, lightheadedness, chest pain, palpitations, SOB, abdominal pain, diarrhea, dysuria. Found to have WBC 20.2, creatinine 1.5 (baseline), CXR negative. Given Metoprolol IV 5mg in ER and rate improved. Remains in afib, rate 70's. Cough improving, otherwise asymptomatic, no overnight events, labs reviewed. 1. New onset rapid atrial fibrillation with RVR 2. Neutrophilia 3. Cough Plan - Stable for discharge home - Continue Metoprolol 50mg PO BID - Eliquis 2.5mg BID - Can continue Amlodipine and discontinue Hydralazine on discharge
--- NOTE | 2017-12-01 07:01 | Patient Discharge Instructions ---
Discharge Instructions General Discharge Information You were seen/treated for: Atrial fibrillation with rapid ventricular rate Watch for these problems: In case of chest pain, palpitation, nausea, vomiting please go to the nearest emergency room Special Instructions: Please follow-up with your primary care provider/mold blower within 1-2 weeks of discharge. ALEIDA F/U WITH PCP FOR LUNG NODULES Diet Continue normal diet: No Recommended Diet: Heart Healthy Activity Full Activity/No Limits: No Activity Self Limited: Yes Acute Coronary Syndrome Inclusion Criteria At DC or during hospital stay patient has or had the following: ACS DIAGNOSIS No Discharge Core Measures Meds if any: Prescribed or Continued at Discharge Meds if any: NOT Prescribed or Continued at Discharge Congestive Heart Failure Inclusion Criteria At DC or during hospital stay patient has or had the following: CHF DIAGNOSIS No Discharge Core Measures Meds if any: Prescribed or Continued at Discharge Meds if any: NOT Prescribed or Continued at Discharge Cerebrovascular accident Inclusion Criteria At DC or during hospital stay patient has or had the following: CVA/TIA Diagnosis No Discharge Core Measures Meds if any: Prescribed or Continued at Discharge Meds if any: NOT Prescribed or Continued at Discharge Venous thromboembolism Inclusion Criteria VTE Diagnosis No VTE Type NONE VTE Confirmed by (Test) NONE Discharge Core Measures - Per Current guidelines, there needs to be overlap - treatment for the first 5 days of Warfarin therapy. - If discharged on Warfarin prior to 5 days of - overlap therapy, the patient will need to be - assessed for post discharge needs including - *Post discharge parental anticoagulation - *Warfarin and/or parental anticoagulation education - *Follow up date to check INR post discharge At least 5 days overlap therapy as Inpatient No Meds if any: Prescribed or Continued at Discharge Note: Overlap Therapy is Warfarin and Anticoagulant Meds if any: NOT Prescribed or Continued at Discharge
[2017-12-01 07:31] LABS: ABSOLUTE BASOPHIL COUNT 0.1 /CUMM (0.0-0.2); ABSOLUTE EOSINOPHIL COUNT 0.6 /CUMM (0.0-0.7); ABSOLUTE LYMPH COUNT 6.6 /CUMM (1.2-3.4); ABSOLUTE MONOCYTE COUNT 1.2 /CUMM (0.10-0.60); BASOPHIL % 0.5 % (0.0-2.0); EOSINOPHIL % 3.6 % (0-5); GRANULOCYTE % 48.5 % (42.2-75.2); HEMATOCRIT 30.3 % (42-52); MEAN CORPUSCULAR HGB 29.2 PG (27.0-31.0); MEAN CORPUSCULAR HGB CONC 33.2 G/DL (33.0-37.0); MEAN PLATELET VOLUME 11.4 FL (7.4-10.4); PLATELET COUNT 225 /CUMM (130-400); RBC DISTRIBUTION WIDTH 13.9 % (11.5-14.5); RED BLOOD CELL CT 3.44 /CUMM (4.70-6.10); WHITE BLOOD CELL COUNT 16.5 /CUMM (4.8-10.8)
--- NOTE | 2017-12-01 08:26 | PN- Student ---
Subjective Subjective: HPI: This is an 81 year old male with a past medical history of HTN, nephrolithiasis, benign kidney growths, DM, leukemia, and prostate cancer. He was referred to the ED from his PCP for new onset atrial fibrillation found this morning at a follow up doctors visit for cough. He denies any known tachycardia, heart palpitations, shortness of breath on exertion or at rest, chest pain, or edema. He is unsure of when his atrial fibrillation may have begun and states that he has no cardiac history. He has been seen by a home care specialist for a number of years for baseline monitoring and has a prior echocardiogram that was taken this year with Dr. Camargo. His cough began 10 days ago following administration of a pneumonia shot. He described symptoms of sore throat and productive cough for which he visited his primary care physician who performed a rapid strep test which was positive and treated him with Penicillin for a 10 day course. He says his sore throat has gone away but the productive cough is still present and has not changed. He denies any pain with the cough, but notes that it is worse on laying down and loosens a little with hot beverages like tea. He feels he keeps his blood pressure and diabetes well managed, checking blood sugar levels and blood pressure regularly. He notes his regular blood pressure to be 120-130 systolic. He denies any recent headaches, fevers, chills, sick contacts, any shortness of breath, changes to urinary or bowel habits or painful urination. 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 -Prostate cancer in 1999 treated with radiation, currently in remission. -BRIANA 2009 with kidney stones. States last kidney stone was one year prior, passed at home. -See HPI for diabetes and hypertension. 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 He currently lives with his . Both are ambulatory. He denies ETOH use except on rare special occasion, never smoker, denies illegal drug use. Family history: - Father passed from throat cancer. -3 Sisters, all passed. -1 older brother, patient stated healthy for his age. -He has three children, all are well. ROS: Occasional numbness in hands from arthritis. See HPI for headache, nausea, vomiting, fever, chills, cardiovascular changes, shortness of breath, changes to digestion, or urination. Objective Objective: Physical Exam: Vitals: Pulse 104 BPM; Blood pressure 129/85 mmHg; Respirations 16; Temperature 98.2 degrees F.; Pulse ox 95% on room air. General: Patient found in lying supine. He is alert and oriented. He was well spoken, used full sentences, and was pleasant. Skin: Warm and dry throughout. No edema of upper or lower extremity. Eyes: Pinpoint bilaterally, nonreactive to light. Mouth: Gingiva was pink and glistening, tonsils not visualized. Head: Normocephalic, atraumatic. Neck: Trachea was midline, no JVD noted. No carotid bruits heard. Jugular pulse was 2+, irregular. Heart: No lifts or heaves noted. PMI was noted in mid clavicular line, along 5th intercostal space. Heart was tachycardic, and irregular in rhythm. S1 and S2 sounds were heard with no splitting. No S3 or S4 appreciated. Lungs: Chest expansion even bilaterally. Lung sounds were clear bilaterally. Abdomen: Bowel sounds heard in the upper right quadrant. No carotid bruits heard. All four quadrants soft and non-tender. Imaging: EKG: Showed rapid Afib, tachycardia, PVCs CXR: No acute pulmonary finding. CT: No evidence of pneumonia, mild interstitial lung disease with scattered non specific nodules found. Radiologist recommends reassessment in 6 months depending on clinical circumstance. Echocardiogram: Pending. Results Results: Laboratory Tests 12/01/17 0627: Anion Gap 12, Estimated GFR 45 L, BUN/Creatinine Ratio 20.7, Magnesium 1.7, Triglycerides 153 H, Cholesterol 78, LDL Cholesterol, Calc 18 L, HDL Cholesterol 30 L, Cholesterol/HDL Ratio 3, CBC w Diff MAN DIFF ORDERED, RBC 3.44 L, MCV 88.0, MCH 29.2, MCHC 33.2, RDW 13.9, MPV 11.4 H, Gran % 48.5, Lymphocytes % 39.9, Monocytes % 7.5, Eosinophils % 3.6, Basophils % 0.5, Absolute Granulocytes 8.0 H, Segmented Neutrophils 41 L, Band Neutrophils 3, Absolute Lymphocytes 6.6 H, Lymphocytes 48, Monocytes 2, Absolute Monocytes 1.2 H, Eosinophils 1, Absolute Eosinophils 0.6, Basophils 1, Absolute Basophils 0.1 , Metamyelocytes 1, Myelocytes 3 H, Platelet Estimate ADEQUATE, Polychromasia 1 +, Schistocytes RARE 11/30/17 1835: Phosphorus 4.1, Troponin I 0.03, Thyroxine (T4) 7.3 11/30/17 1440: Free T4 Cancelled 11/30/17 1215: Anion Gap 16, Estimated GFR 45 L, BUN/Creatinine Ratio 22.7, Glucose 202 H, Hemoglobin A1c 7.3 H, Calcium 9.4, Magnesium 1.6, Total Bilirubin 0.3, AST 18, ALT 33, Alkaline Phosphatase 65, Troponin I 0.03, Total Protein 6.8, Albumin 4.3 , Globulin 2.5, Albumin/Globulin Ratio 1.7, TSH 0.217 L, PT 11.8, INR 1.08, APTT 31, CBC w Diff MAN DIFF ORDERED, RBC 3.86 L, MCV 86.9, MCH 29.4, MCHC 33.8 , RDW 13.8, MPV 10.8 H, Gran % 57.3, Lymphocytes % 32.5, Monocytes % 6.2, Eosinophils % 3.6, Basophils % 0.4, Absolute Granulocytes 11.6 H, Absolute Lymphocytes 6.6 H, Absolute Monocytes 1.3 H, Absolute Eosinophils 0.7, Absolute Basophils 0.1, Platelet Estimate ADEQUATE, Normocytic RBCs VERIFIED, Normochromic RBCs VERIFIED, Urine Color YEL, Urine Clarity CLEAR, Urine pH 6.0, Ur Specific [place] 1.025, Urine Protein 30 H, Urine Ketones NEG, Urine Nitrite NEG, Urine Bilirubin NEG, Urine Urobilinogen 0.2, Ur Leukocyte Esterase NEG, Ur Microscopic SEDIMENT EXAMINED, Urine RBC 1-3, Urine WBC 1-3 H, Urine Bacteria FEW H, Urine Hemoglobin NEG, Urine Glucose NEG Microbiology 11/30 191 URINE ROUT: Urine Culture - RES 11/30 1526 LOWER RESP: Respiratory Culture - CAN Cancelled: SPECIMEN NOT RECEIVED IN LABORATORY 11/30 1526 LOWER RESP: Gram Stain - CAN Cancelled: SPECIMEN NOT RECEIVED IN LABORATORY Assessment/Plan Assessment: This is an 81 year old male with a past history of HTN, nephrolithiasis, benign kidney growths, DM, leukemia, and prostate cancer being evaluated for atrial fibrillation. New onset atrial fibrillation: Due to the patients lack of symptoms for atrial fibrillation, it is hard to determine the onset. The patient was hypertensive upon admission to the hospital and was given Lopressor - consider hypertensive etiology. He has been treated recently for a positive strep culture consider post infectious etiology. Due to patients age, consider valve incompetence. R /O thyroid etiology. Productive cough: Elevated white count suggests possible infection, however the patient has recently been treated for strep throat and feels as though he has partially recovered. Pneumonia is unlikely due to negative chest x-ray/CT. Elevated creatinine: Creatinine levels have been chronically elevated since 2016. Likely chronic kidney disease. Plan: New onset atrial fibrillation: Control heart rate with Metoprolol 50 mg BID with goal of heart rate under 100. Due to unknown onset of atrial fibrillation and [id number] score over 2, begin anticoagulation Eliquis 2.5 mg BID. Request cardiology consult for evaluation of patient and echocardiogram findings. We are currently waiting on the echocardiogram to determine valve competency, EF, and presence of thrombus in atrium or LA appendage. Should any abnormalities be discovered, consider obtaining echocardiogram done earlier this year from patient's regular home care specialist. Obtain TSH/T4 studies. Chronic Cough: Administer Guaifenesin extended release 600 mg to 1200 mg every 12 hours as needed for cough. Administer Benzonatate 100 MG TID. Culture sputum. Elevated Creatinine: Monitor for elevation/changes. Patient should be monitored by PCP as an outpatient. Monitor glucose levels and BEPs.
[2017-12-01 10:37] VITALS: BP 134/74
--- NOTE | 2017-12-01 10:44 | ECHOCARDIOGRAM REPORT ---
INDIA REESE Age: 82 : 1935 Gender: M Exam Date: 11/30/2017 16:04 Exam Location: ER Ht (in): 72 Wt (lb): 220 BSA: 2.27 BP: 119 / 72 Ordering Physician: Jeremy Castaneda DO Referring Physician: Alexys Carr MD Technologist: Jen Pedro RDCS Room Number: ER#3 Indications: AFIB/FLUTTER Rhythm: Atrial fibrillation Technical Quality: fair FINDINGS Left Ventricle Akinetic lateral wall and inferior wall, basal to apical. Left ventricular ejection fraction is estimated at 35-40 %. Cannot comment on diastolic pressures due to underlying atrial fibrillation. Right Ventricle Normal right ventricular size and function. Right Atrium Normal right atrial size. Left Atrium Mild left atrial dilatation. Mitral Valve Severe mitral annular calcification. Mild mitral regurgitation, and mild stenosis with mean gradient of 5 mmHg. Aortic Valve Trace aortic regurgitation. No evidence of vegetation on the aortic valve. Diffuse thickening (sclerosis) of the aortic valve cusps without reduced excursion. Tricuspid Valve Tricuspid valve is normal in structure and function. There is moderate tricuspid regurgitation. Elevated RVSP, estimated at 40 mmHg Pulmonic Valve Structurally normal pulmonic valve. Trace pulmonic regurgitation. Pericardium Pericardium not well visualized, grossly normal. Great Vessels Normal size aortic root and proximal ascending aorta. CONCLUSIONS Akinetic lateral wall and inferior wall, basal to apical. Left ventricular ejection fraction is estimated at 35-40 %. Cannot comment on diastolic pressures due to underlying atrial fibrillation. Mild left atrial dilatation. Severe mitral annular calcification. Mild mitral regurgitation, and mild stenosis with mean gradient of 5 mmHg. Trace aortic regurgitation. No evidence of vegetation on the aortic valve. Diffuse thickening (sclerosis) of the aortic valve cusps without reduced excursion. There is moderate tricuspid regurgitation. Elevated RVSP, estimated at 40 mmHg . Trace pulmonic regurgitation. Pericardium not well visualized, grossly normal. Normal size aortic root and proximal ascending aorta. Alexys Carr M.D. (Electronically Signed) Final Date: 01 December 2017 10:43 MEASUREMENTS (Male / Female) Normal Values 2D ECHO LV Diastolic Diameter PLAX 3.9 cm 4.2 - 5.9 / 3.9 - 5.3 cm LV Systolic Diameter PLAX 2.5 cm 2.1 - 4.0 cm LV Fractional Shortening PLAX 35.9 % 25 - 46 % LV Ejection Fraction 2D Teich 66.1 % IVS Diastolic Thickness 1.2 cm LVPW Diastolic Thickness 1.2 cm LV Relative Wall Thickness 0.6 RV Internal Dim ED PLAX 3.0 cm 1.9 - 3.8 cm LVOT Diameter 2.0 cm Aortic Root Diameter 2.3 cm LA Systolic Diameter LX 4.3 cm 3.0 - 4.0 / 2.7 - 3.8 cm LA Volume 56.0 cm 18 - 58 / 22 - 52 cm Ascending Aorta Diameter 3.1 cm DOPPLER AV Peak Velocity 162.0 cm/s AV Peak Gradient 10.5 mmHg AV Mean Velocity 114.0 cm/s AV Mean Gradient 6.0 mmHg AV Velocity Time Integral 29.9 cm LVOT Peak Velocity 101.0 cm/s LVOT Peak Gradient 4.1 mmHg LVOT Mean Velocity 67.4 cm/s LVOT Mean Gradient 2.0 mmHg LVOT Velocity Time Integral 20.3 cm LVOT Stroke Volume 63.8 cm AV Area Cont Eq vti 2.1 cm AV Area Cont Eq pk 2.0 cm MV Peak Velocity 165.0 cm/s MV Peak Gradient 10.9 mmHg MV Mean Velocity 94.8 cm/s MV Mean Gradient 5.0 mmHg Mitral E Point Velocity 151.0 cm/s MV PHT Velocity 174.0 cm/s MV Deceleration Becker 659.0 cm/s MV Pressure Half Time 79.2 ms MV Area PHT 2.8 cm MV Deceleration Time 217.0 ms TR Peak Velocity 309.0 cm/s TR Peak Gradient 38.2 mmHg Right Atrial Pressure 5.0 mmHg Pulmonary Artery Systolic Pressu 43.2 mmHg Right Ventricular Systolic Press 43.2 mmHg PV Peak Velocity 102.0 cm/s PV Peak Gradient 4.2 mmHg PV Mean Velocity 72.1 cm/s PV Mean Gradient 2.0 mmHg PV Velocity Time Integral 22.7 cm LV E' Lateral Velocity 8.3 cm/s Mitral E to LV E' Lateral Ratio 18.1 LV E' Septal Velocity 5.3 cm/s Mitral E to LV E' Septal Ratio 28.7
--- NOTE | 2017-12-01 10:56 | PN- Cardiology ---
See Addendum Subjective Subjective: Feeling very good this morning. Cough is improved. HR 75-90 since yesterday evening. No complaints. echocardiogram shows EF 35-40% with lateral and inferior wall akinesis, and increased right ventricular systolic pressure estimated at 40 mmHg. Eager to go home. Objective Vital Signs and I&Os Vital Signs Date Time Temp Pulse Resp B/P B/P Pulse O2 O2 Flow FiO2 Mean Ox Delivery Rate 12/01 630 98.7 71 20 134/74 95 Room Air 11/30 2236 98.9 106 22 134/76 93 Room Air 11/30 1912 136 11/30 1826 98.3 97 16 134/76 94 11/30 1811 94 Room Air 11/30 1645 98.2 108 16 129/85 95 Room Air 11/30 1521 103 16 94 Room Air 11/30 1447 105 119/72 11/30 1415 103 18 95 Room Air 11/30 1328 98.0 94 16 132/81 94 Room Air 11/30 1255 97.0 124 18 163/84 11/30 1242 97.0 124 163/84 11/30 1155 98.1 122 18 149/86 99 Room Air Intake & Output 12/01 1600 12/01 0800 12/01 0000 11/30 1600 11/30 0800 11/30 0000 Intake Total 480 480 Output Total 300 150 Balance 480 180 -150 Intake, Oral 480 480 Number 0 Bowel Movements Output, Urine 300 150 Patient 222 lb 220 lb Weight Weight Bed scale Reported by Patient Measurement Method Physical Exam General Appearance: no apparent distress, alert, awake Neck: normal inspection, trachea mid line (no JVD) Respiratory: normal breath sounds, no respiratory distress, lungs clear Cardiovascular: regular rate/rhythm (no rub, no murmur, no JVD) Abdomen: normal bowel sounds, soft, non-tender Extremities: normal capillary refill, no edema Neurologic/Psychiatric: no motor/sensory deficits, awake, alert, oriented x 3 Results Last 48 Hrs of Labs/Mics: Laboratory Tests 12/01/17 06: Anion Gap 12, Estimated GFR 45 L, BUN/Creatinine Ratio 20.7, Magnesium 1.7, Triglycerides 153 H, Cholesterol 78, LDL Cholesterol, Calc 18 L, HDL Cholesterol 30 L, Cholesterol/HDL Ratio 3, CBC w Diff MAN DIFF ORDERED, RBC 3.44 L, MCV 88.0, MCH 29.2, MCHC 33.2, RDW 13.9, MPV 11.4 H, Gran % 48.5, Lymphocytes % 39.9, Monocytes % 7.5, Eosinophils % 3.6, Basophils % 0.5, Absolute Granulocytes 8.0 H, Segmented Neutrophils 41 L, Band Neutrophils 3, Absolute Lymphocytes 6.6 H, Lymphocytes 48, Monocytes 2, Absolute Monocytes 1.2 H, Eosinophils 1, Absolute Eosinophils 0.6, Basophils 1, Absolute Basophils 0.1 , Metamyelocytes 1, Myelocytes 3 H, Platelet Estimate ADEQUATE, Polychromasia 1 +, Schistocytes RARE 11/30/17 1835: Phosphorus 4.1, Troponin I 0.03, Thyroxine (T4) 7.3 11/30/17 1440: Free T4 Cancelled 11/30/17 1215: Anion Gap 16, Estimated GFR 45 L, BUN/Creatinine Ratio 22.7, Glucose 202 H, Hemoglobin A1c 7.3 H, Calcium 9.4, Magnesium 1.6, Total Bilirubin 0.3, AST 18, ALT 33, Alkaline Phosphatase 65, Troponin I 0.03, Total Protein 6.8, Albumin 4.3 , Globulin 2.5, Albumin/Globulin Ratio 1.7, TSH 0.217 L, PT 11.8, INR 1.08, APTT 31, CBC w Diff MAN DIFF ORDERED, RBC 3.86 L, MCV 86.9, MCH 29.4, MCHC 33.8 , RDW 13.8, MPV 10.8 H, Gran % 57.3, Lymphocytes % 32.5, Monocytes % 6.2, Eosinophils % 3.6, Basophils % 0.4, Absolute Granulocytes 11.6 H, Absolute Lymphocytes 6.6 H, Absolute Monocytes 1.3 H, Absolute Eosinophils 0.7, Absolute Basophils 0.1, Platelet Estimate ADEQUATE, Normocytic RBCs VERIFIED, Normochromic RBCs VERIFIED, Urine Color YEL, Urine Clarity CLEAR, Urine pH 6.0, Ur Specific [place] 1.025, Urine Protein 30 H, Urine Ketones NEG, Urine Nitrite NEG, Urine Bilirubin NEG, Urine Urobilinogen 0.2, Ur Leukocyte Esterase NEG, Ur Microscopic SEDIMENT EXAMINED, Urine RBC 1-3, Urine WBC 1-3 H, Urine Bacteria FEW H, Urine Hemoglobin NEG, Urine Glucose NEG Assessment/Plan Assessment/Plan Recent onset Afib with rapid ventricular response, responded very quickly to lopresor 5mg IV X 2 and has been only metoprolol 50 bid since yesterday with good rate control. 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 He will follow up with his PCP and Dr Lawrence in the next 1-2 weeks, i would not restart hydralazine and privilege an ACEI or ARB at small doses and check potassium next week since renal function if impaired and potassium is in the higher range of normal. I have no objection to discharging patient today. Continue telemetry? Not applicable
[2017-12-01] MEDS ORDERED: ELIQUIS2.5 M1 PO ×2 (11:04→11:57)
[2017-12-01] MEDS ORDERED: LOPRESSOR50 M1 PO ×2 (11:04→11:57)
[2017-12-01] MEDS ORDERED: BENZONATATE100 M1 PO ×2 (11:04→11:57)
[2017-12-01] MEDS ORDERED: LISINOPRIL5 M1 PO (12:02)
--- NOTE | 2017-12-01 12:10 | Discharge Summary ---
Visit Information Visit Dates Admission Date: 11/30/17 Discharge Date: 12/01/17 Hospital Course Course Attending Physician: Linh Liang MD Primary Care Physician: Ramirez HAHN,[facility] Course: 82-year-old male with past medical history of hypertension, diabetes came from his PCP office with EKG showing atrial fibrillation with rapid ventricular rate. Patient went to his primary care physician for cough and yellow sputum production for the past 10 days. Patient was in usual state of health until 10 days ago following which he had chronic cough with yellow sputum production. He saw his PCP,who started him on amoxicillin for 10 days. Patient cough did not improve much and hence he went back to his PCP. Upon examination he found to have atrial fibrillation and stat EKG was taken which showed A. fib with RVR and hence was sent to [facility]. Patient denies chest pain, palpitation, orthopnea , dyspnea, paroxysmal nocturnal dyspnea, fever, chills, dizziness during the same time. Patient never had these kind of symptoms in the past. Patient actually drove from his primary care physician office to [facility]. He denies any heart/renal disease. But patient had a stress test done 3 months ago DONE by Dr. Lawrence which was negative. She also has high white blood count, seen by ethylbenzene cracking supervisor and had a negative investigation. Last admission at [facility] was in year 2009 for acute renal failure. 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 Hospital course: 1. Atrial fibrillation with rapid ventricular rate -patient presented with rapid atrial fibrillation with rapid ventricular rate. Treated with IV Lopressor. Unsure if the bronchitis/systemic hypertension triggering this atrial fibrillation. Patient's [id number] score is 4 requiring anticoagulation. Patient is on Eliquis, metoprolol 50 for the same. We did a CAT scan of the chest to rule out any pneumonia. It was negative. But patient has multiple pulmonary nodules and a left thyroid nodule which needs outpatient follow-up. Thyroid function study normal. Echocardiogram was done which was normal. Patient was cleared by cardiology to follow-up with Dr. Zoya Pineda as outpatient. 2.Chronic leukocytosis with no bands/cough with sputum production-patient previous WBC was 17 in August 2016. Patient was investigated in the past by ethylbenzene cracking supervisor and suggested no evidence of malignancy. Patient will follow up with primary care physician with this final sputum cultures. Allergies: Coded Allergies: Sulfa (Sulfonamide Antibiotics) (ITCHING 08/25/16) metformin (DIARRHEA 11/30/17) Pertinent Lab Results: Chest CT The patient is no definite solid renal masses. Thickening of the intralobular septa. This mild interstitial lung disease is nonspecific but appears new. There are scattered nonspecific small nodules. No acute pneumonia. There may be ankylosing spondylitis. Cholelithiasis. Depending upon the clinical circumstances a follow-up study to reassess the nodule should be considered in approximately 6 months. Echocardiogram Akinetic lateral wall and inferior wall, basal to apical. Left ventricular ejection fraction is estimated at 35-40 %. Cannot comment on diastolic pressures due to underlying atrial fibrillation. Mild left atrial dilatation. Severe mitral annular calcification. Mild mitral regurgitation, and mild stenosis with mean gradient of 5 mmHg. Trace aortic regurgitation. No evidence of vegetation on the aortic valve. Diffuse thickening (sclerosis) of the aortic valve cusps without reduced excursion. There is moderate tricuspid regurgitation. Elevated RVSP, estimated at 40 mmHg . Trace pulmonic regurgitation. Pericardium not well visualized, grossly normal. Normal size aortic root and proximal ascending aorta. Disposition Summary Disposition Principal Diagnosis: Atrial fibrillation with rapid ventricular rate Additional Diagnosis: NONE Discharge Disposition: home or self care Discharge Instructions General Discharge Information Code Status: Full Code Patient's Diet: Heart healthy diet Patient's Activity: As tolerated Follow-Up Instructions/Appts: Please follow-up with your primary care provider/screw machine tender within 1-2 weeks of discharge and let them know about your recent admission at [facility] Medications at Discharge Discharge Medications: Stop taking the following medications: Hydralazine HCl (Hydralazine HCl) 50 MG TABLET ORAL TWICE DAILY Qty = 90 Aspirin (Aspirin*) 81 MG TAB.CHEW ORAL DAILY Continue taking these medications: Sitagliptin Phosphate (Januvia) 50 MG TABLET 1 Tablet ORAL DAILY Qty = 90 Comments: NOT GIVEN IN HOSPITAL. NOVOLOG LAST GIVEN 11:48 AM Amlodipine Besylate (Amlodipine Besylate) 10 MG TABLET 1 Tablet ORAL DAILY Comments: Last Taken: 12/01/17 Time: 10:37 AM Glucosamine HCl (Glucosamine HCl) 500 MG TABLET 2 Tablet ORAL DAILY Comments: NOT GIVEN IN HOSPITAL Cyanocobalamin (Vitamin B-12) 1,000 MCG TABLET ORAL DAILY Comments: NOT GIVEN IN HOSPITAL Atorvastatin Calcium (Atorvastatin Calcium) 10 MG TABLET 1 Tablet ORAL Every night Comments: Last Taken: 11/30/17 Time: 20:43 PM Start taking the following new medications: Benzonatate (Benzonatate) 100 MG CAPSULE 100 Milligram ORAL THREE TIMES DAILY Qty = 15 No Refills Instructions: . Comments: Last Taken: 12/01/17 Time: 10:37 AM Metoprolol Tartrate (Lopressor) 50 MG TABLET 1 Tablet ORAL TWICE DAILY Qty = 60 No Refills Instructions: . Comments: Last Taken: 11/30/17 Time: 12:55 PM Apixaban (Eliquis) 2.5 MG TABLET 2.5 Milligram ORAL TWICE DAILY Qty = 60 No Refills Instructions: . Comments: Last Taken: 12/01/17 Time: 10:37 AM Lisinopril (Lisinopril) 5 MG TABLET 1 Tablet ORAL DAILY Qty = 30 No Refills Comments: NOT GIVEN IN HOSPITAL Copies To: Howard HAHN,Gurpreet; Ramirez HAHN,Arslan
== END 2017-12-01 13:50 | DRG 310 ==
LOC: ERH 11:49 → 1NO 14:24 → ERHI 14:24 → ENRESERV 15:51 → ENTRNSPT 17:45 → EDTRNSPTSTS 17:55 → CMPTRNSPT 18:14 → 1NO 18:14 → EDPENDDISTM 12-01 12:26 → EDPENDDISDT 12-01 12:26 → ENTRNSPT 12-01 13:34 → EDTRNSPTSTS 12-01 13:41 → 1NO 12-01 13:50 → CMPTRNSPT 12-01 13:57
PROVIDERS: Physician Assistant; Student in an Organized Health Care Education/Training Program
DX: I48.91 Unspecified atrial fibrillation (principal); E78.5 Hyperlipidemia, unspecified; I12.9 Hypertensive chronic kidney disease with stage 1 through stage 4 chronic kidney disease, or unspecified chronic kidney disease; E11.22 Type 2 diabetes mellitus with diabetic chronic kidney disease; N18.3 Chronic kidney disease, stage 3 (moderate); Z79.84 Long term (current) use of oral hypoglycemic drugs; D72.829 Elevated white blood cell count, unspecified; R91.8 Other nonspecific abnormal finding of lung field; E04.1 Nontoxic single thyroid nodule; Z88.2 Allergy status to sulfonamides; Z88.8 Allergy status to other drugs, medicaments and biological substances; I25.2 Old myocardial infarction
CPT/HCPCS: 1NSP; 36592; 71045; 81001; 82436; 87070; 87086; 93005; 93010; 93306; 96374; 99291